=== PATIENT | female | born 1960 | race Caucasian/White ===

== ENCOUNTER 2022-05-24 18:21 | Emergency (ER) | payer SELFPAY ==
[~2022-05-24] VITALS: Ht 157.5 cm; Wt 72.6 kg
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
--- NOTE | 2022-05-24 19:22 | Diagnostic Imaging Report ---
INDICATION: left shoulder pain COMPARISON: None. FINDINGS: 3 views of the left shoulder were obtained. There is no fracture, dislocation, or other acute bony abnormality identified. The soft tissues appear unremarkable. No radiopaque foreign body is identified. The visualized portions of the left lung are clear. IMPRESSION: No acute fractures or dislocations of the left shoulder. Dictated by: Dictated on workstation # [id number]
[2022-05-24 19:32] VITALS: BP 148/77
== END 2022-05-24 19:30 | disposition home or self-care (01) ==
LOC: EDUNIT# 18:21 → ER 18:23
DX: S40.012A Contusion of left shoulder, initial encounter (principal); S50.02XA Contusion of left elbow, initial encounter; M54.2 Cervicalgia; Z28.310 Unvaccinated for COVID-19; V43.52XA Car driver injured in collision with other type car in traffic accident, initial encounter; Y92.512 Supermarket, store or market as the place of occurrence of the external cause
CPT/HCPCS: 70450; 72125; 73030